=== PATIENT | female | born 1985 | race Hispanic/Latino ===

== ENCOUNTER 2022-03-01 18:25 | Emergency (ER) | payer OTHER ==
[~2022-03-01] VITALS: Ht 167.6 cm; Wt 117.9 kg
[2022-03-01] MEDS ORDERED: IBUPROFEN 600 MG TAB PO ONE (18:55)
[2022-03-01] MEDS ORDERED: IBUPROFEN 600 MG TAB ONE (19:04)
[2022-03-01] MEDS ORDERED: IBUPROFEN600 MG PO (19:15)
[2022-03-01] MEDS ORDERED: BENZONATATE100 MG PO (19:16)
== END 2022-03-01 19:24 | disposition home or self-care (01) ==
LOC: ER 18:35
DX: R50.9 Fever, unspecified (principal); J06.9 Acute upper respiratory infection, unspecified; R05.9 Cough, unspecified
CPT/HCPCS: 99283; U0002